=== PATIENT | female | born 1980 | race Hispanic/Latino ===

== ENCOUNTER 2018-06-24 11:11 | Emergency (ER) | payer MEDICAID ==
[2018-06-24 11:17] VITALS: BMI 26.9
[2018-06-24 12:45] LABS: SQUAMOUS EPITHIAL 5 /hpf (0-5); URINE BACTERIA RARE (<OCC); URINE BILIRUBIN NEGATIVE (NEGATIVE); URINE BLOOD NEGATIVE (NEGATIVE); URINE CLARITY CLOUDY (Clear); URINE COLOR AMBER (YELLOW); URINE GLUCOSE (UA) NEG (NEGATIVE); URINE HYALINE CAST 0-2 /hpf (0-2); URINE LEUKOCYTE ESTERASE TRACE Leu/uL (Negative); URINE PROTEIN NEGATIVE (NEGATIVE); URINE UROBILINOGEN 0.2-1.0 mg/dL (0.2-1.0)
[2018-06-24 13:08] LABS: BASO # 0.1 K/uL (0.0-0.2); BASO % 0.4 % (0.0-2.0); EOS # 0.1 K/uL (0.0-0.7); EOS % 0.5 % (0.0-4.0); HEMOGLOBIN 12.5 g/dL (12.0-16.0); LYMPH # 1.2 K/uL (1.0-4.3); LYMPH % 7.9 % (20.0-40.0); MEAN CELL VOLUME 92.3 fl (81.0-99.0); MEAN CORPUSCULAR HEMOGLOBIN 30.2 pg (27.0-31.0); MEAN CORPUSCULAR HGB CONC 32.8 g/dL (33.0-37.0); MEAN PLATELET VOLUME 9.6 fl (7.2-11.7); MONO # 0.7 K/uL (0.0-0.8); MONO % 4.6 % (0.0-10.0); NEUT # 13.6 K/uL (1.8-7.0); NEUT % 86.6 % (50.0-75.0); PLATELET COUNT 258 K/uL (130-400); RBC 4.12 Mil/uL (3.80-5.20); RED CELL DISTRIBUTION WIDTH 13.7 % (11.5-14.5); WHITE BLOOD COUNT 15.7 K/uL (4.8-10.8)
[2018-06-24 13:28] LABS: ALB/GLOB RATIO 1.3 (1.0-2.1); ALBUMIN 4.4 g/dL (3.5-5.0); ALT/SGPT 17 U/L (9-52); AST/SGOT 20 U/L (14-36); BLOOD UREA NITROGEN 9 mg/dl (7-17); CALCIUM 9.7 mg/dL (8.4-10.2); GFR NON-AFRICAN AMERICAN > 60
--- NOTE | 2018-06-24 14:09 | ED PDOC ---
HPI: Abdomen Time Seen by Provider: 06/24/18 11:35 Chief Complaint (Nursing): Abdominal Pain Chief Complaint (Provider): pelvic pain History Per: Patient History/Exam Limitations: no limitations Current Symptoms Are (Timing): Still Present Location Of Pain/Discomfort: RLQ, LLQ, Suprapubic Quality Of Discomfort: Sharp Associated Symptoms: Nausea, Loss Of Appetite, Back Pain Exacerbating Factors: None Alleviating Factors: None Last Bowel Movement: Today Additional Complaint(s): 37yo female c/o pelvic pain ongoing and worsening for several days, pain with sexual intercourse, denies vaginal discharge, urinary symptoms, fever or history of known UTIs. Past Medical History Reviewed: Historical Data, Nursing Documentation, Vital Signs Vital Signs: Last Vital Signs Temp 98.4 F 06/24/18 11:16 Pulse 99 H 06/24/18 11:16 Resp 18 06/24/18 11:16 BP 129/79 06/24/18 11:16 Pulse Ox 97 06/24/18 11:16 - Medical History PMH: Depression - Surgical History Surgical History: - Family History Family History: States: Unknown Family Hx - Immunization History Hx Tetanus Toxoid Vaccination: No Hx Influenza Vaccination: No Hx Pneumococcal Vaccination: No - Home Medications Home Medications: Ambulatory Orders Medication Instructions Recorded RX: Escitalopram [Lexapro] 10 mg PO DAILY #30 tab 02/27/18 RX: Gabapentin [Neurontin] 300 mg PO BID #60 cap 02/27/18 RX: traZODone [Desyrel] 100 mg PO HS #30 tab 02/27/18 Ibuprofen [Motrin] 600 mg PO Q6H PRN #20 tab 06/24/18 RX: Doxycycline Hyclate 100 mg PO BID #28 capsule 06/24/18 - Allergies Allergies/Adverse Reactions: Allergies Allergy/AdvReac Type Severity Reaction Status Date / Time Sulfa (Sulfonamide Allergy Severe RASSH Verified 02/23/18 21:18 Antibiotics) Review of Systems ROS Statement: Except As Marked, All Systems Reviewed And Found Negative Constitutional: Negative for: Fever, Sweats Respiratory: Negative for: Cough, Shortness of Breath Gastrointestinal: Positive for: Abdominal Pain Genitourinary Female: Positive for: Pelvic Pain. Negative for: Dysuria, Hematuria, Vaginal Discharge, Vaginal Bleeding Musculoskeletal: Positive for: Back Pain. Negative for: Leg Pain Skin: Negative for: Rash, Lesions Neurological: Negative for: Weakness, Numbness Psych: Negative for: Depression Physical Exam - Reviewed Nursing Documentation Reviewed: Yes Vital Signs Reviewed: Yes - Physical Exam Appears: Positive for: Well, Non-toxic, No Acute Distress Head Exam: Positive for: ATRAUMATIC, NORMAL INSPECTION, NORMOCEPHALIC Skin: Positive for: Normal Color, Warm, DRY Eye Exam: Positive for: EOMI, Normal appearance, PERRL ENT: Positive for: Normal ENT Inspection Neck: Positive for: Normal, Painless ROM Cardiovascular/Chest: Positive for: Regular Rate, Rhythm Respiratory: Positive for: CNT, Normal Breath Sounds Gastrointestinal/Abdominal: Positive for: Soft, Tenderness (lower abd b/l) Back: Positive for: Normal Inspection Extremity: Positive for: Normal ROM Neurologic/Psych: Positive for: Alert, Oriented - Laboratory Results Result Diagrams: 06/24/18 13:00 06/24/18 13:00 - ECG O2 Sat by Pulse Oximetry: 97 Medical Decision Making Medical Decision Making: workup for pelvic pain initiated w labs, US pelvis labs reviewed revealed leukocytosis endorsed Dr Balderas pending US report, pelvic exam and dispo Disposition - Clinical Impression Clinical Impression: Bilateral ovarian cysts, PID (acute pelvic inflammatory disease) - Patient ED Disposition Is Patient to be Admitted: Transfer of Care - Disposition Referrals: [facility] [[facility]] [facility] Disposition: Transfer of Care Disposition Time: 15:00 Condition: IMPROVED Additional Instructions: Follow up with PRICE ANALYST in 1-2 days return to the ED with any worsening or concerning symptoms Prescriptions: RX: Doxycycline Hyclate 100 mg PO BID #28 capsule Ibuprofen [Motrin] 600 mg PO Q6H PRN #20 tab PRN Reason: Pain, Moderate (4-7) Instructions: Ovarian Cysts, Pelvic Inflammatory Disease (DC) Forms: [place] (Irish), [facility] ED School/Work Excuse Patient Signed Over To: Jose Balderas
[2018-06-24 14:33] LABS: BANDS 1 % (0-2); EOSINOPHIL 1 % (0-7); LYMPHOCYTE 5 % (20-50); MONOCYTE 4 % (0-10); NEUTROPHIL 89 % (42-75); PLATELET ESTIMATE NORMAL (NORMAL); TOTAL CELLS COUNTED 100
--- NOTE | 2018-06-24 15:23 | ED PDOC ---
- Laboratory Results Result Diagrams: 06/24/18 13:00 06/24/18 13:00 - ECG O2 Sat by Pulse Oximetry: 97 Medical Decision Making Medical Decision Making: Time: 1499 --Patient endorsed to provider pending US pelvis results and pelvic exam to R/O PID. Time: 154 --Pelvic exam performed with RAY Nolan as senior reservoir engineer. (+) CMT on bimanual. Otherwise (-) bleeding or discharge seen in os. Time: 154 --US FINDINGS: UTERUS: Measures 9.5 x 5.0 x 3.8 cm. Normal in size and appearance. No fibroid or other mass lesion seen. ENDOMETRIUM: Measures 9.0 mm in diameter. Unremarkable. CERVIX: There are nabothian cysts in the cervix. RIGHT OVARY: Measures 7.2 x 5.6 x 4.1 cm. No solid mass. Normal flow. There is a 4.2 x 3.6 x 3.6 cm complicated cyst. LEFT OVARY: Measures 6.1 x 4.1 x 3.7 cm. No solid mass. Normal flow. There is a 4.2 x 2.2 x 1.9 cm complicated/hemorrhagic cyst in the left ovary. FREE FLUID: There is small amount of free fluid in the pelvis. OTHER FINDINGS: None. IMPRESSION: 1. Enlarged bilateral ovaries. 2. 4.2 x 3.6 x 3.6 cm complicated cyst in the right ovary. No evidence for torsion. Follow-up ultrasound in 3-6 month interval is recommended to assess stability/resolution. 3. 4.2 x 2.2 x 1.9 cm complicated/hemorrhagic cyst in the left ovary. Follow- up ultrasound in 3-6 month interval is recommended to assess stability/resolution. Time: 1602 --Clinical PID but no TOA. Discussed results iwth patient re cysts but no torsion. explained that needs to follow up with airport planner. 17:15 --Patient will be given antibiotics due to clinical PID. setn off urine Jesus [facility]. She will be discharged upon completion of antibiotics. she referred to gyneco logist as outpt. Scribe Attestation: Documented by Marie Whitmore, acting as a scribe for Jose Balderas MD. Provider Scribe Attestation: All medical record entries made by the Scribe were at my direction and personally dictated by me. I have reviewed the chart and agree that the record accurately reflects my personal performance of the history, physical exam, medical decision making, and the department course for this patient. I have also personally directed, reviewed, and agree with the discharge instructions and disposition. Disposition Counseled Patient/Family Regarding: Studies Performed, Diagnosis, Need For Followup - Clinical Impression Clinical Impression: Bilateral ovarian cysts, PID (acute pelvic inflammatory disease) - POA Present On Arrival: None - Disposition Referrals: [facility] [Outside] [facility] [Outside] Disposition: Routine/Home Disposition Time: 20:00 Condition: IMPROVED Additional Instructions: Follow up with CLINICAL EXERCISE PHYSIOLOGIST in 1-2 days return to the ED with any worsening or concerning symptoms Prescriptions: RX: Doxycycline Hyclate 100 mg PO BID #28 capsule Ibuprofen [Motrin] 600 mg PO Q6H PRN #20 tab PRN Reason: Pain, Moderate (4-7) Instructions: Ovarian Cysts, Pelvic Inflammatory Disease (DC) Forms: [place] ([place]), [facility] ED School/Work Excuse
--- NOTE | 2018-06-24 15:52 | US ---
Date of service: 06/24/2018 HISTORY: severe b/l pelvic pain COMPARISON: None available. TECHNIQUE: FINDINGS: UTERUS: Measures 9.5 x 5.0 x 3.8 cm. Normal in size and appearance. No fibroid or other mass lesion seen. ENDOMETRIUM: Measures 9.0 mm in diameter. Unremarkable. CERVIX: There are nabothian cysts in the cervix. RIGHT OVARY: Measures 7.2 x 5.6 x 4.1 cm. No solid mass. Normal flow. There is a 4.2 x 3.6 x 3.6 cm complicated cyst. LEFT OVARY: Measures 6.1 x 4.1 x 3.7 cm. No solid mass. Normal flow. There is a 4.2 x 2.2 x 1.9 cm complicated/hemorrhagic cyst in the left ovary. FREE FLUID: There is small amount of free fluid in the pelvis. OTHER FINDINGS: None. IMPRESSION: 1. Enlarged bilateral ovaries. 2. 4.2 x 3.6 x 3.6 cm complicated cyst in the right ovary. No evidence for torsion. Follow-up ultrasound in 3-6 month interval is recommended to assess stability/resolution. 3. 4.2 x 2.2 x 1.9 cm complicated/hemorrhagic cyst in the left ovary. Follow-up ultrasound in 3-6 month interval is recommended to assess stability/resolution.
[2018-06-24 16:42] VITALS: TEMP 98.5
[2018-06-24] MEDS ORDERED: cefOXitin 2 GM in Sodium Chloride 0.9% 100 ML IVPB ONE (17:11)
[2018-06-24] MEDS ORDERED: cefTRIAXone (Rocephin) 250 mg Inj IM ONE (19:38)
[2018-06-24] MEDS ORDERED: cefTRIAXone (Rocephin) 250 mg Inj ONE (20:36)
[2018-06-24 20:47] VITALS: BP 120/64; PULSE 71; RESP 20
[2018-06-24 23:05] VITALS: O2SAT 97
== END 2018-06-24 21:17 | disposition home or self-care (01) ==
LOC: H.ER 11:11
DX: N83.201 Unspecified ovarian cyst, right side (principal); N83.202 Unspecified ovarian cyst, left side; N73.9 Female pelvic inflammatory disease, unspecified
CPT/HCPCS: 76830; 76856; 80053; 81003; 81025; 84702; 85025; 87040; 87086; 87491; 87591; 96365; 96372; 96375; 99285; J0694; J0696; J1885